=== PATIENT | female | born 1965 | race Caucasian/White ===

== ENCOUNTER → 2019-05-22 11:26 | Outpatient (BNVA) | payer MEDICARE, MEDICAID, SELFPAY | PROVIDERS: Family Provider Family Medicine; PCP Family Medicine; Visit Provider Specialist | DX: G47.419 Narcolepsy without cataplexy (principal) | CPT/HCPCS: G0463 ==

== ENCOUNTER → 2019-06-07 09:00 | Outpatient (BNVA) | payer MEDICARE, MEDICAID, SELFPAY | PROVIDERS: Family Provider Family Medicine; PCP Family Medicine; Visit Provider Nurse Practitioner | DX: F43.12 Post-traumatic stress disorder, chronic (principal); F25.0 Schizoaffective disorder, bipolar type | CPT/HCPCS: 99213 ==

== ENCOUNTER → 2019-06-13 17:30 | Outpatient (BNVA) | payer MEDICARE, MEDICAID, SELFPAY | PROVIDERS: Family Provider Family Medicine; PCP Family Medicine; Visit Provider Nurse Practitioner | DX: M54.9 Dorsalgia, unspecified (principal); R35.0 Frequency of micturition | CPT/HCPCS: 81003; 87086 ==

== ENCOUNTER 2019-06-14 17:56 | Emergency (ER) | payer MEDICARE, MEDICAID, SELFPAY ==
[2019-06-14 18:01] VITALS: BP 146/92; PULSE 93; RESP 18; TEMP 37.4; O2SAT 94; BMI 28.6
--- NOTE | 2019-06-14 18:06 | ED_ITS ---
Entered by Rosemary Chappell, acting as scribe for Henok Luis MD HPI - Fever General: Chief Complaint: Fever Stated Complaint: fever Time Seen by Provider: 06/14/19 18:10 Source: patient and family Mode of arrival: ambulatory Limitations: no limitations History of Present Illness: HPI Narrative: 53 yo female presents with fever. pt states this started 1 week ago. pt states she was recently dx with a UTI. pt states she started Microbid but she is still running fevers. pt has had congestion and cough. pt denies any other symptoms at this time. MD elicited complaint: fever and other (UTI) Onset (ago): week(s) (1 week ago) Exacerbating factors: nothing Relieving factors: nothing Associated symptoms: Reports chills, cough, nasal congestion and other (fever); Deny abdominal pain, chest pain, diarrhea, headache(s), nausea or vomiting Treatments prior to arrival fever: other (recently dx with UTI) Review of Systems Const: Reports: fever, chills and body aches Eyes: Denies: photophobia ENMT: Reports: nasal congestion Card: Denies: chest pain Resp: Reports: productive cough and chest congestion GI: Denies: abdominal pain, nausea, vomiting or diarrhea : Reports: urinary frequency Musc: Denies: neck pain or back pain Skin/Breast: Denies: rash Neuro: Denies: headache Psych: Denies: depression Maurisio/Lymph: Denies: easy bruising All/Imm: Denies: hives PFSH ED PFSH: Medical History (Updated 06/14/19 @ 20:16 by Henok Luis MD) Post-traumatic stress disorder, chronic Social History Smoking and tobacco status: never smoked Quit status (tobacco): has quit using tobacco Year quit tobacco: 1995 Alcohol intake: former History of recent travel: No Physical Exam Const: COMMON NORMALS: no apparent distress, oriented x3 and healthy appearing HENMT: COMMON NORMALS: normocephalic and head/scalp atraumatic HEAD & SCALP: normocephalic and atraumatic Eye: COMMON NORMALS: PERRL and EOMs intact bilaterally PUPIL: Yes PERRL Neck/C-Spine: COMMON NORMALS: full ROM and supple Chest: COMMONS NORMALS: inspection of chest normal and palpation of chest normal Resp: COMMON NORMALS: normal respiratory effort, no retractions, no use of accessory muscles and clear to auscultation bilaterally AUSCULTATION: clear to auscultation bilaterally Cardio: COMMON NORMALS: regular rate, regular rhythm and no murmurs RATE: regular rate RHYTHM: regular rhythm GI: COMMON NORMALS: normal to inspection, nondistended, normoactive bowel sounds, soft to palpation, non-tender and no masses PALPATION: Yes soft Extremity: COMMON NORMALS: normal to inspection and full ROM Neuro: COMMON NORMALS: oriented x3, moves all extremities and no focal motor deficits Psych: COMMON NORMALS: mental status grossly normal, thought process normal and cooperative THOUGHT PROCESS: normal thought process Skin: COMMON NORMALS: no rashes or lesions noted and no wounds GENERAL SKIN EXAM: no rashes or lesions noted Course Vital Signs: Vital signs: Vital Signs Temperature 99.3 F 06/14/19 18:01 Pulse Rate 93 06/14/19 18:01 Respiratory Rate 18 06/14/19 18:01 Blood Pressure 146/92 06/14/19 18:01 Pulse Oximetry 94 06/14/19 18:01 MDM - Fever MDM Narrative: Medical decision making narrative: Patient presents here with fevers along with congestion and cough. Patient does have influenza and likely causing this symptoms. X-ray shows no signs of pneumonia. Will start patient on Tamiflu. She is to continue her Macrobid for her UTI. She is to follow-up with her primary care doctor in 3 to 5 days return if worsening. Lab Data: Labs: Lab Results 06/14/19 Range/Units 19:21 Influenza Type A A g Positive H (Negative) POC Influenza B Ag Negative (Negative) Imaging Data^: CXR: Attestation: I personally reviewed and interpreted this imaging study as follows: My impression: no acute abnormality Discharge Plan Discharge Patient Disposition: Home, Self-Care Clinical Impression: Influenza Condition: Stable Prescriptions: New Tamiflu 75 mg capsule 75 mg PO BID 5 Days Qty: 10 RF: 0 No Action metformin 1,000 mg tablet 1,000 mg PO BID RF: 0 aspirin [Aspir-Nahomy] 325 mg tablet,delayed release (DR/EC) 325 mg PO DAILY RF: 0 propranolol 20 mg tablet 10 mg PO BID RF: 0 omeprazole 20 mg capsule,delayed release(DR/EC) 20 mg PO DAILY RF: 0 fenofibrate micronized 200 mg capsule 200 mg PO DAILY RF: 0 hydrocodone-acetaminophen 10-325 mg tablet 1 tab PO Q4H PRNRF: 0 ibandronate [Boniva] 150 mg tablet 150 mg PO .COMPLEX RF: 0 lidocaine [Lidoderm] 5 % adhesive patch,medicated 1 patch TOPICAL DAILY RF: 0 methylphenidate HCl [Ritalin LA] 40 mg capsule,ER biphasic 50-50 40 mg PO .COMPLEX 30 Days Qty: 60 RF: 0 escitalopram oxalate [Lexapro] 20 mg tablet 20 mg PO DAILY Qty: 30 RF: 2 clonazepam 0.5 mg tablet 0.5 mg PO DAILY PRN (Reason: anxiety) Qty: 30 RF: 2 nitrofurantoin monohyd/m-cryst [Macrobid] 100 mg capsule 100 mg PO BID 7 Days Qty: 14 RF: 0 Discharge Orders: Discharge Order (Routine); Ordered 06/14/19 Ordered By: Henok Luis Referrals: Dereck Hernandez [Primary Care Provider] - 4-7 days Discharge Diet: Advance as tolerated Discharge Activity: Resume usual activity Patient Instructions: Influenza (ED) Coding Level of Care Code ED Vault Worker for g Fwd Exam Comprehensive The documentation recorded by the Ta santacruz Bridget Annette, accurately reflects the service I personally performed and the decisions made by Janelle auguste Korby, MD Jun 14, 2019 17:56
[2019-06-14] MEDS: dexamethasone 10 mg/mL INJ IM (19:21)
[2019-06-14] MEDS: acetaminophen 500 mg Tablet 1000 MG PO (19:21)
--- NOTE | 2019-06-14 19:39 | XR_ITS ---
WS: [id number] XR chest 1V portable [id number] REASON FOR EXAM: cough FINDINGS: Hypoaerated lungs are seen bilaterally. The chest is similar to September 09, 2016. The lung duenas are free of pneumonia, no congestive heart failure. No pulmonary edema. No pleural ef fusion. There are scattered granulomas seen. The hilum and apices normal. XR/XR chest 1V portable [id number] IMPRESSION: Hypoaerated lungs with no acute findings.
[2019-06-14 20:12] LABS: Influenza A by IFA Positive (Negative); Influenza B by IFA Negative (Negative)
--- NOTE | 2019-06-14 21:18 | PC.NURSE ---
Patient dc'd home in stable condition via ambulation refusing wheelchair. Discharge papers given and explained to patient with all questions asked and answered.
[2019-06-14 21:21] VITALS: BP 136/78; PULSE 88; RESP 16; O2SAT 98
== END 2019-06-14 21:22 | disposition home or self-care (01) ==
PROVIDERS: Emergency Provider Emergency Medicine; Family Provider Family Medicine; PCP Family Medicine
DX: J10.1 Influenza due to other identified influenza virus with other respiratory manifestations (principal); N39.0 Urinary tract infection, site not specified; F43.12 Post-traumatic stress disorder, chronic; Z87.891 Personal history of nicotine dependence
CPT/HCPCS: 12345; 71045; 87804; 96372; 99281; 99283; J1100

== ENCOUNTER → 2019-08-14 09:53 | Outpatient (BNVA) | payer MEDICARE, MEDICAID, SELFPAY | PROVIDERS: Family Provider Family Medicine; PCP Family Medicine; Visit Provider Specialist | DX: G47.419 Narcolepsy without cataplexy (principal); G43.711 Chronic migraine without aura, intractable, with status migrainosus; Z87.891 Personal history of nicotine dependence | CPT/HCPCS: 99213 ==

== ENCOUNTER → 2019-08-30 07:34 | Outpatient (BNVA) | payer MEDICARE, MEDICAID, SELFPAY | PROVIDERS: Family Provider Family Medicine; PCP Family Medicine; Visit Provider Nurse Practitioner | DX: F43.12 Post-traumatic stress disorder, chronic (principal) | CPT/HCPCS: 99213 ==

== ENCOUNTER → 2019-11-19 09:55 | Outpatient (BNVA) | payer MEDICARE, MEDICAID, SELFPAY | PROVIDERS: Family Provider Family Medicine; PCP Family Medicine; Visit Provider Specialist | DX: G47.419 Narcolepsy without cataplexy (principal) | CPT/HCPCS: 99213 ==

== ENCOUNTER 2019-12-18 14:50 | Outpatient (CLI) | payer MEDICARE, MEDICAID, SELFPAY ==
--- NOTE | 2019-12-18 15:00 | XR_ITS ---
WS: [id number] DEXA (DUAL ENERGY X-RAY ABSORPTIOMETRY) Bone mineral density was performed using a [employer] machine. HISTORY: OSTEOPOROSIS COMPARISON: None available. Lumbar spine BMD (L1-L4): 1.112 g/cm2 T score: -0.6 Z score: -0.3 Total hip BMD: Left: 0.887 g/cm2. T score: -1.0 Z score: -0.7 Right: 0.889 g/cm2. T score: -0.9 Z score: -0.7 10 year probability of a major osteoporotic fracture is 9%. XR/XR DEXA axial skeleton* [id number] IMPRESSION: NORMAL BONE MINERAL DENSITY based upon the WHO classification for females.
== END 2019-12-18 14:51 | disposition home or self-care (01) ==
LOC: RADWPI 14:54
PROVIDERS: Family Provider Family Medicine; PCP Family Medicine; Visit Provider Family Medicine
DX: M81.0 Age-related osteoporosis without current pathological fracture (principal)
CPT/HCPCS: 77080

== ENCOUNTER → 2019-12-24 08:06 | Outpatient (BNVA) | payer MEDICARE, MEDICAID, SELFPAY | PROVIDERS: Family Provider Family Medicine; PCP Family Medicine; Visit Provider Nurse Practitioner | DX: F43.12 Post-traumatic stress disorder, chronic (principal) | CPT/HCPCS: 99213 ==

== ENCOUNTER → 2020-04-15 07:59 | Outpatient (BNVA) | payer MEDICARE, MEDICAID, SELFPAY | PROVIDERS: Family Provider Family Medicine; PCP Family Medicine; Visit Provider Nurse Practitioner | DX: F43.12 Post-traumatic stress disorder, chronic (principal) | CPT/HCPCS: 99213 ==

== ENCOUNTER → 2020-05-30 09:50 | Outpatient (BNVA) | payer MEDICARE, MEDICAID, SELFPAY | PROVIDERS: Family Provider Family Medicine; PCP Family Medicine; Visit Provider Specialist | DX: G47.419 Narcolepsy without cataplexy (principal) | CPT/HCPCS: 99213 ==

== ENCOUNTER → 2020-08-18 08:42 | Outpatient (BNVA) | payer MEDICARE, MEDICAID, SELFPAY | PROVIDERS: Family Provider Family Medicine; PCP Family Medicine; Visit Provider Specialist | DX: G47.419 Narcolepsy without cataplexy (principal); Z87.891 Personal history of nicotine dependence | CPT/HCPCS: 99213 ==

== ENCOUNTER → 2020-11-17 12:20 | Outpatient (BNVA) | payer MEDICARE, MEDICAID, SELFPAY | PROVIDERS: Family Provider Family Medicine; PCP Family Medicine; Visit Provider Specialist | DX: G47.419 Narcolepsy without cataplexy (principal); Z87.891 Personal history of nicotine dependence | CPT/HCPCS: 99213 ==

== ENCOUNTER 2020-11-28 22:26 | Emergency (ER) | payer MEDICARE, MEDICAID, SELFPAY ==
[2020-11-28 22:33] VITALS: BP 135/84; PULSE 97; RESP 18; TEMP 36; O2SAT 96; BMI 28.3
--- NOTE | 2020-11-29 00:20 | W.ED.BACK ---
HPI - Back Pain/Injury General: Chief Complaint: Back Pain/Injury Stated Complaint: lower back paing going down to the R leg Time Seen by Provider: 11/28/20 22:40 History of Present Illness: HPI Narrative: Patient complains about back pain with sciatica rating down her right leg is been gone for about 3 days. Patient's not aware of any injury does have a history of chronic back pain has had sciatica in the past. Patient denies any bowel or bladder problems. Says difference this time is a pain trend and further down her leg that before where usually just with antibiotics for now is gone below the knee on the right side MD elicited complaint: back pain Pertinent past history: prior back pain Onset (ago): day(s) Timing: constant and progressively worsening Severity: moderate Similar Symptoms Previously: Yes Quality: burning and aching Location: lumbar spine Radiation: right upper leg and right leg below the knee Exacerbating factors: movement Relieving factors: none Context: unknown Associated symptoms: Reports no associated symptoms; Deny abdominal pain, chills, fever(s), nausea or vomiting Treatments prior to arrival: cold therapy and NSAIDS Review of Systems Const: Denies: fever(s), chills or body aches Eyes: Denies: change in vision or blurry vision ENMT: Denies: throat pain or nasal congestion Card: Denies: chest pain or dyspnea on exertion Resp: Denies: dyspnea, productive cough or non-productive cough GI: Denies: abdominal pain, nausea or vomiting Musc: Reports: back pain and extremity pain Skin/Breast: Denies: rash Neuro: Denies: headache(s) Psych: Denies: anxiety or depression Maurisio/Lymph: Denies: easy bruising PFSH ED PFSH: Medical History Post-traumatic stress disorder, chronic Well woman exam with routine gynecological exam Family History Mother Diabetes Hyperlipidemia Hypertension Heart disease Grandmother Diabetes maternal Family/Other Breast cancer maternal aunt, age onset 30's maternal cousin, age onset 30's Ovarian cancer maternal aunt x2 age onset 60's, 70's Denies family history of Colon cancer Clotting disorder Anesthesia complication Bleeding disorder Uterine cancer Thyroid condition Stroke Social History Smoking and tobacco status: former smoker Quit status (tobacco): has quit using tobacco Year quit tobacco: 1995 Alcohol intake: former Former alcohol use details: years ago History of recent travel: No Physical Exam Const: COMMON NORMALS: no acute distress, average body habitus and patient oriented x3 HENMT: COMMON NORMALS: normocephalic HEAD & SCALP: normal to inspection and normocephalic FACE & SINUS: normal facial exam Eye: COMMON NORMALS: conjunctivae normal GENERAL EYE: appearance normal, both eyes and all related structures CONJUNCTIVA: Yes conjunctivae normal Neck/C-Spine: COMMON NORMALS: no JVD Chest: COMMONS NORMALS: normal inspection of the chest Resp: COMMON NORMALS: normal respiratory effort and clear to auscultation bilaterally AUSCULTATION: clear to auscultation bilaterally Cardio: COMMON NORMALS: no JVD, regular rate and regular rhythm RATE: regular rate RHYTHM: regular rhythm GI: COMMON NORMALS: Normal to inspection, nondistended, normoactive bowel sounds present Back/Pelvis: LUMBAR SPINE/LOWER BACK: Yes straight leg raise positive right PELVIS: Yes sciatic notch tenderness Extremity: COMMON NORMALS: normal to inspection and full ROM Neuro: COMMON NORMALS: patient oriented x3 Course Vital Signs: Vital signs: Vital Signs Temperature 96.8 F L 11/28/20 22:33 Pulse Rate 97 11/28/20 22:33 Respiratory Rate 18 11/28/20 22:33 Blood Pressure 135/84 11/28/20 22:33 Pulse Oximetry 96 11/28/20 22:33 Discharge Plan Discharge Patient Disposition: Home Clinical Impression: Sciatic neuropathy Qualifiers: Laterality: right Qualified Code(s): G57.01 - Lesion of sciatic nerve, right lower limb Condition: Stable Prescriptions: New prednisone 20 mg tablet 20 mg PO DAILY Qty: 7 RF: 0 No Action methylphenidate HCl [Ritalin LA] 40 mg capsule,ER biphasic 50-50 40 mg PO BID 30 Days Qty: 60 RF: 0 methylphenidate HCl 40 mg capsule,ER biphasic 50-50 40 mg PO BID 30 Days Qty: 60 RF: 0 methylphenidate HCl 40 mg capsule,ER biphasic 50-50 40 mg PO DAILY 30 Days Qty: 60 RF: 0 metformin 1,000 mg tablet 1,000 mg PO BID RF: 0 aspirin [Aspir-Nahomy] 325 mg tablet,delayed release (DR/EC) 325 mg PO DAILY RF: 0 omeprazole 20 mg capsule,delayed release(DR/EC) 20 mg PO DAILY RF: 0 fenofibrate micronized 200 mg capsule 200 mg PO DAILY RF: 0 hydrocodone-acetaminophen 10-325 mg tablet 1 tab PO Q4H PRNRF: 0 lidocaine [Lidoderm] 5 % adhesive patch,medicated 1 patch TOPICAL DAILY RF: 0 ibandronate [Boniva] 150 mg tablet 150 mg PO .monthly RF: 0 clonazepam 0.5 mg tablet 0.5 mg PO DAILY PRN (Reason: anxiety) Qty: 30 RF: 2 escitalopram oxalate [Lexapro] 20 mg tablet 20 mg PO DAILY Qty: 30 RF: 2 Discharge Orders: Discharge ED (Routine); Ordered 11/29/20 Ordered By: Nic Gonzalez Referrals: Dereck Hernandez [Primary Care Provider] - Discharge Diet: Usual diet Discharge Activity: Increase activity as tolerated Patient Instructions: Sciatica (ED) Activity Restrictions/Additional Instructions: Follow-up with medical provider as directed. Take medications as prescribed. Return to the ER or your medical provider if condition worsens. Please read and understand discharge instructions. If any questions ask please. Coding Level of Care Code ED Internet Network Specialist for Jhoan Aviles
[2020-11-29] MEDS: orphenadrine 30 mg/mL Inj 2 mL 60 MG IM (00:27)
[2020-11-29] MEDS: methylPREDNISolone (DEPO) 80 MG/ML INJ 1 mL IM (00:28)
[2020-11-29 00:33] VITALS: BP 145/76; PULSE 63; RESP 18; O2SAT 97
[2020-11-29 00:35] VITALS: BP 145/76; PULSE 66; O2SAT 96
== END 2020-11-29 00:40 | disposition home or self-care (01) ==
PROVIDERS: Emergency Provider Nurse Practitioner Family; PCP Family Medicine
DX: G57.01 Lesion of sciatic nerve, right lower limb (principal); Z79.84 Long term (current) use of oral hypoglycemic drugs; Z79.82 Long term (current) use of aspirin; Z87.891 Personal history of nicotine dependence
CPT/HCPCS: 96372; 99283; J1040; J2360

== ENCOUNTER → 2020-12-09 07:10 | Outpatient (BNVA) | payer MEDICARE, MEDICAID, SELFPAY | PROVIDERS: PCP Family Medicine; Visit Provider Nurse Practitioner | DX: F43.12 Post-traumatic stress disorder, chronic (principal) | CPT/HCPCS: 99214 ==

== ENCOUNTER 2020-12-29 09:46 | Outpatient (CLI) | payer MEDICARE, MEDICAID, SELFPAY ==
--- NOTE | 2020-12-29 10:15 | MR_ITS ---
WS: [id number] MRI LUMBAR SPINE NONCONTRAST HISTORY: Severe RIGHT sciatica. Low back pain for 3 weeks. COMPARISON: 05/19/2011 TECHNIQUE: Sagittal and axial multisequence imaging is submitted. Very mild increase in lumbar lordosis. 2 mm anterolisthesis of L4 is new. Mild disc desiccation throu ghout. No fractures or marrow edema. Conus terminates normally at L1-2 disc level. L1-L2: Normal. L2-L3: Mild annular disc bulging with a LEFT foraminal disc protrusion contacting the exiting L2 nerv e root. There is also the fissure associated with disc protrusion. Disc protrusion has increased in s ize since the prior study. Small amount of fluid in the facet joints bilaterally. L3-L4: Mild annular disc bulging and osteophytic ridging. Increased soft tissue in the RIGHT subartic ular recess and foramen. There is a disc protrusion contacting the RIGHT lateral thecal sac with mini mal displacement of the traversing RIGHT L4 nerve root. There is complete effacement of fat in the RI GHT foramen and contact on the exiting RIGHT L3 nerve root. There is increased soft tissue within the foramen. There may be of disc fragment present also. These findings are new since the prior study. M ild bilateral facet joint arthritis. L4-L5: Diffuse annular disc bulging with a RIGHT subarticular recess and foraminal disc protrusion co ntacting the ventral thecal sac. Moderate ligamentum flavum disease and facet arthritis. Increase flu id in the facet joints with facet joint hypertrophy. Mild widening of the RIGHT facet joint and a sma ll 6 mm facet joint cyst on the RIGHT. Mild central stenosis. Moderate RIGHT subarticular recess and foraminal stenosis. L5-S1: Mild annular disc bulging without stenosis. Paravertebral soft tissues are negative for acute process. MR/MR lumbar spine wo con* [id number] IMPRESSION: 1. New disc protrusion extending into the RIGHT subarticular recess and forame n at L3-4. Contact on the L3 and L4 nerve roots. Additional increased soft tiss ue within the RIGHT L3-4 foramen. There could potentially be a separate fragmen t within the foramen. 2. Mild central stenosis with moderate RIGHT subarticular and foraminal stenos is at L4-5. There is a disc protrusion with annular fissure extending into the RIGHT subarticular recess. 3. Progression of facet joint arthritis with fluid and synovitis at L4-5 with a RIGHT facet joint cyst. 4. Small LEFT foraminal disc protrusion at L2-3 contacting the exiting L2 nerv e root. Mild progression since the prior study.
== END 2020-12-29 09:47 | disposition home or self-care (01) ==
PROVIDERS: PCP Family Medicine; Visit Provider Family Medicine
DX: M54.41 Lumbago with sciatica, right side (principal); M51.26 Other intervertebral disc displacement, lumbar region; M48.061 Spinal stenosis, lumbar region without neurogenic claudication; M47.816 Spondylosis without myelopathy or radiculopathy, lumbar region
CPT/HCPCS: 72148

== ENCOUNTER → 2021-01-27 15:37 | Outpatient (BNVA) | payer MEDICARE, MEDICAID, SELFPAY | PROVIDERS: PCP Family Medicine; Visit Provider Orthopaedic Surgery | DX: M54.16 Radiculopathy, lumbar region (principal) | CPT/HCPCS: 72110 ==

== ENCOUNTER → 2021-02-11 12:35 | Outpatient (BNVA) | payer MEDICARE, MEDICAID, SELFPAY | PROVIDERS: PCP Family Medicine; Visit Provider Specialist | DX: G47.419 Narcolepsy without cataplexy (principal); R01.1 Cardiac murmur, unspecified; Z87.891 Personal history of nicotine dependence | CPT/HCPCS: 99213 ==

== ENCOUNTER → 2021-03-03 18:04 | Outpatient (BNVA) | payer MEDICARE, MEDICAID, SELFPAY | PROVIDERS: PCP Family Medicine; Visit Provider Nurse Practitioner | DX: J02.9 Acute pharyngitis, unspecified (principal); B34.9 Viral infection, unspecified | CPT/HCPCS: 87400; 87880 ==

== ENCOUNTER → 2021-05-04 07:18 | Outpatient (BNVA) | payer MEDICARE, MEDICAID, SELFPAY | PROVIDERS: PCP Family Medicine; Visit Provider Nurse Practitioner | DX: F43.12 Post-traumatic stress disorder, chronic (principal) | CPT/HCPCS: 99214 ==

== ENCOUNTER → 2021-05-13 09:41 | Outpatient (BNVA) | payer MEDICARE, MEDICAID, SELFPAY | PROVIDERS: PCP Family Medicine; Visit Provider Specialist | DX: G47.419 Narcolepsy without cataplexy (principal); Z87.891 Personal history of nicotine dependence | CPT/HCPCS: 99213 ==

== ENCOUNTER → 2021-08-10 09:17 | Outpatient (BNVA) | payer MEDICARE, MEDICAID, SELFPAY | PROVIDERS: PCP Family Medicine; Visit Provider Specialist | DX: G47.419 Narcolepsy without cataplexy (principal); R01.1 Cardiac murmur, unspecified; Z87.891 Personal history of nicotine dependence | CPT/HCPCS: 99213; 99214 ==

== ENCOUNTER → 2021-11-16 09:22 | Outpatient (BNVA) | payer MEDICARE, MEDICAID, SELFPAY | PROVIDERS: PCP Family Medicine; Visit Provider Specialist | DX: G47.419 Narcolepsy without cataplexy (principal); R01.1 Cardiac murmur, unspecified; Z79.899 Other long term (current) drug therapy | CPT/HCPCS: 99213; 99214 ==

== ENCOUNTER 2021-11-23 11:04 | Outpatient (CLI) | payer MEDICARE, MEDICAID, SELFPAY ==
--- NOTE | 2021-11-23 11:15 | USCV_ITS ---
Mily Sinclair Age: 56 Gender: F : 1965 Exam Date: 11/23/2021 11:44 Ordering Phys: Minerva Bush MD Technologist: Clare Bar [place] [facility] [place]: Murmur BP: 138 / 80 HR: 64 Rhythm: Sinus Technical Quality: Adequate MEASUREMENTS (Male / Female) Normal Values 2D ECHO LV Diastolic Diameter PLAX 2.7 cm 4.2 - 5.9 / 3.9 - 5.3 cm LV Systolic Diameter PLAX 2.2 cm IVS Diastolic Thickness 1.7 cm 0.6 - 1.0 / 0.6 - 0.9 cm IVS Systolic Thickness 1.7 cm LVPW Diastolic Thickness 1.3 cm 0.6 - 1.0 / 0.6 - 0.9 cm LVPW Systolic Thickness 1.7 cm LVOT Diameter 2.0 cm LV Ejection Fraction 2D Teich 41.4 % LV Ejection Fraction MOD 2C 83.5 % LV Ejection Fraction 2C AL 83.8 % LA Diameter 2.5 cm LA Width 3.3 cm LA Height 4.5 cm RA Width 2.9 cm RA Height 4.0 cm Aorta at Sinotubular Diameter 3.0 cm IVC Diameter 1.8 cm DOPPLER AV Peak Velocity 171.0 cm/s LVOT Peak Velocity 150.0 cm/s AV Area Cont Eq vti 2.8 cm squared AV Area Cont Eq pk 2.9 cm squared MV Peak Velocity 136.0 cm/s MV Area PHT 3.4 cm squared Mitral E to A Ratio 0.7 MV E' Velocity 45.0 cm/s Mitral E to MV E' Ratio 15.6 Mitral E to LV E' Lateral Ratio 14.5 Mitral E to LV E' Septal Ratio 17.2 TR Peak Velocity 76.0 cm/s TR Peak Gradient 2.3 mmHg Right Atrial Pressure 3.0 mmHg Pulmonary Artery Systolic Pressu 5.3 mmHg PV Peak Velocity 92.0 cm/s RV Acceleration Time 0.1 s RV Ejection Time 0.3 s RV AcT/ET 0.3 FINDINGS Left Ventricle Normal left ventricular size, systolic function with no regional wall motion abnormalities. Left ventricular ejection fraction is estimated at 70 %. Grade I diastolic dysfunction (abnormal relaxation filling pattern), normal to mildly elevated filling pressures. Right Ventricle Normal right ventricular size and systolic function. RVSP could not be calculated due to incomplete tricuspid regurgitation velocity profile. Right Atrium Normal right atrial size. Left Atrium Mildly increased left atrial size. Mitral Valve Thickened mitral valve. No mitral valve stenosis. Mild mitral valve regurgitation. Aortic Valve Structurally normal trileaflet aortic valve. No aortic valve stenosis. No aortic valve regurgitation. Tricuspid Valve Structurally normal tricuspid valve. No tricuspid valve stenosis. Trace tricuspid valve regurgitation. Pulmonic Valve Pulmonic valve not well visualized. No pulmonary valve stenosis. No pulmonary valve regurgitation. Pericardium No pericardial effusion. Aorta Normal size aortic root and proximal ascending aorta. IVC Normal IVC dimension with >50% respiratory change of the inferior vena cava. CONCLUSIONS 1. Normal left ventricular size, systolic function with no regional wall motion abnormalities. Left ventricular ejection fraction is estimated at 70 %. Grade I diastolic dysfunction (abnormal relaxation filling pattern), normal to mildly elevated filling pressures. 2. Normal right ventricular size and systolic function. 3. Mild mitral valve regurgitation. 4. No prior similar studies to compare. Torie Mendez MD (Electronically Signed) Final Date: 26 November 2021 16:00 S
== END 2021-11-23 11:05 | disposition home or self-care (01) ==
LOC: RAD 11:05
PROVIDERS: PCP Family Medicine; Visit Provider Specialist
DX: R01.1 Cardiac murmur, unspecified (principal); I34.0 Nonrheumatic mitral (valve) insufficiency
CPT/HCPCS: 93306

== ENCOUNTER 2022-01-19 07:46 | Outpatient (CLI) | payer MEDICARE, MEDICAID, SELFPAY ==
--- NOTE | 2022-01-19 07:52 | MR_ITS ---
WS: [id number] MRI HEAD WITH CONTRAST WITH ATTENTION TO THE INTERNAL AUDITORY CANALS TECHNIQUE: Sagittal T1, T2 axial, T2 axial flair, axial susceptibility weighted imaging, axial diffus ion weighted images, and coronal T2 images were obtained. Pre and post T1 axial and post T1 coronal i mages. ADC and FSPGR images. Post gadolinium images with attention to the internal auditory canals. A xial fiesta imaging. CLINICAL INFORMATION: SENSORINEURAL HEARING LOSS, BILATERAL COMPARISON: CT 2006 FINDINGS: No evidence of restricted diffusion to suggest acute ischemia. Ventricular system and basal cisterns are patent. No suspicious intracranial signal abnormalities. Normal zendejas-white differentiation. No ev idence of mass or mass effect. Normal posterior fossa. Normal vascular flow voids at the skull base. No extra-axial fluid collections. No evidence of mass or mass effect. Paranasal sinuses are well aera rafael. Mastoid air cells are well aerated. Normal posterior nasopharynx. Normal parapharyngeal fat. No hemosiderin on susceptibly weighted images. Proximal 7th and 8th cranial nerves are normal. Normal tr igeminal nerve root entry zones. No evidence of enhancing IAC or CP angle mass. Normal optic chiasm and pituitary infundibulum. Normal cavernous sinuses and Meckel's cave. No abnorm al intracranial enhancement. Normal visualized dural venous sinuses. MR/MR iac's wo/w con* [id number] IMPRESSION: 1. No evidence restricted diffusion to suggest acute ischemia. 2. No suspicious intracranial signal abnormalities. Normal zendejas-white differen tiation. 3. Proximal 7th and 8th cranial nerves are normal in appearance. No evidence o f enhancing IAC or CP angle mass. Normal trigeminal nerve root entry zones. 4. No abnormal intracranial enhancement. 5. No hemosiderin on susceptibly weighted images. 6. Sinuses and mastoid air cells are well aerated.
[2022-01-19] MEDS: gadobenate dimeglumine 20 mL vial IV (08:44)
== END 2022-01-19 07:47 | disposition home or self-care (01) ==
LOC: RAD 07:46
PROVIDERS: PCP Family Medicine; Visit Provider Specialist
DX: H90.3 Sensorineural hearing loss, bilateral (principal)
CPT/HCPCS: 70553

== ENCOUNTER 2022-02-12 08:51 | Outpatient (CLI) | payer MEDICARE, MEDICAID, SELFPAY ==
--- NOTE | 2022-02-12 09:01 | MR_ITS ---
WS: [id number] MRA HEAD TECHNIQUE: Axial 3-D TOF images obtained with axial images and axial, sagittal, and coronal 2-D refor matted images. CLINICAL INFORMATION: SENSORINEURAL HEARING LOSS,BILATERAL/TINNITUS,LEFT EAR COMPARISON: MRI January 19, 2022 FINDINGS: Dominant distal LEFT vertebral artery. Smaller but patent distal RIGHT vertebral artery. Basilar froilan ry is patent. Normal vascularity to the MORTGAGE CLOSING CLERK territory bilaterally. Both ICAs are patent to the skull base. Normal vascularity to the BALJIT territory. Normal vascularity t o the MCA territories bilaterally. No evidence of proximal flow limiting stenosis or aneurysm. No evidence of aberrant LEFT ICA. MR/MR angio head wo con [id number] IMPRESSION: Normal intracranial MRA.
== END 2022-02-12 08:52 | disposition home or self-care (01) ==
PROVIDERS: PCP Family Medicine; Visit Provider Specialist
DX: H90.3 Sensorineural hearing loss, bilateral (principal); H93.12 Tinnitus, left ear
CPT/HCPCS: 70544

== ENCOUNTER 2022-02-16 06:42 | Outpatient (CLI) | payer MEDICARE, MEDICAID, SELFPAY ==
--- NOTE | 2022-02-16 06:47 | CT_ITS ---
WS: [id number] CT TEMPORAL BONES TECHNIQUE: Noncontrast CT of the temporal bones with coronal and sagittal reformatted images. CLINICAL INFORMATION: SENSORINEURAL HEARING LOSS, BILAT, TINNITUS LEFT EAR COMPARISON: None. DLP: 296.[address] scans at [facility] use at least one of these dose optimization techniques: automated e xposure control; mA and/or kV adjustment per patient size (includes targeted exams where dose is matc hed to clinical indication); or iterative reconstruction. FINDINGS: RIGHT: Mastoid air cells are well aerated. Normal external auditory canal. Ossicles are normal in appearance . Middle ear is well aerated. Normal tegmen tympani. Semicircular canals and cochlea are normal in ap pearance. Prussak's space is normal. Normal inner ear structures. Normal vestibular aqueduct. Facial nerve recess is normal. LEFT: Mastoid air cells are well aerated. Normal external auditory canal. Ossicles are normal in appearance . Middle ear is well aerated. Thinning of the tegmen tympani. Semicircular canals and cochlea are nor mal in appearance. Prussak's space is normal. Normal inner ear structures. Normal vestibular aqueduct . Facial nerve recess is normal. CT/CT temporal bone wo con* [id number] IMPRESSION: 1. Mastoid air cells are well aerated bilaterally. Paranasal sinuses are well aerated. 2. Normal inner ear structures and ossicles bilaterally. 3. Mild thinning of the LEFT tegmen tympani. 4. Middle ears are well aerated bilaterally.
== END 2022-02-16 06:43 | disposition home or self-care (01) ==
LOC: RAD 06:42
PROVIDERS: PCP Family Medicine; Visit Provider Specialist
DX: H90.3 Sensorineural hearing loss, bilateral (principal)
CPT/HCPCS: 70480

== ENCOUNTER → 2022-02-23 09:32 | Outpatient (BNVA) | payer MEDICARE, MEDICAID, SELFPAY | PROVIDERS: PCP Family Medicine; Visit Provider Specialist | DX: G47.419 Narcolepsy without cataplexy (principal) | CPT/HCPCS: 99213 ==

== ENCOUNTER 2022-04-08 18:33 | Emergency (ER) | payer MEDICARE, MEDICAID, SELFPAY ==
[2022-04-08 19:11] VITALS: BP 148/81; PULSE 83; RESP 16; TEMP 36.7; O2SAT 97; BMI 26.7
--- NOTE | 2022-04-08 20:12 | MRR_ITS ---
PROCEDURE INFORMATION: Exam: MR Lumbar Spine Without Contrast Exam date and time: 04/08/2022 9:42 PM Age: 56 years old Clinical indication: Low back pain; Additional info: Right leg weakness, concern for spinal cord compression TECHNIQUE: Imaging protocol: Magnetic resonance imaging of the lumbar spine without contrast. COMPARISON: MR lumbar spine wo con* [id number] 12/29/2020 10:04 AM FINDINGS: Bones/joints: Unremarkable. No fracture. Normal alignment. The bone marrow signal is within normal limits. A few small lumbar body hemangiomas are visualized. Spinal cord: Visualized cord, conus medullaris and cauda equina are unremarkable without compression. L1-L2: No significant disc disease. No significant spinal canal stenosis. No neural foraminal stenosis. L2-L3: No significant disc disease. No significant spinal canal stenosis. No neural foraminal stenosis. L3-L4: At L3-L4, a moderate broad-based disc bulge causes moderate bilateral neural foraminal stenosis. The central canal measures about 12.5 mm. L4-L5: At L4-L5, a moderate broad-based disc bulge causes moderate bilateral neural foraminal stenosis. Contributory facet and ligamentum flavum hypertrophy. At this level the central canal AP dimension measures about 10 mm. L5-S1: At L5-S1 the central canal measures about 12 mm. For counting purposes, L5 is partially sacralized. Soft tissues: Unremarkable. Kidneys and ureters: Tiny left renal cyst. MR/MR lumbar spine wo con* [id number] IMPRESSION: 1. No acute fracture, subluxation, or aggressive bone lesion visualized. 2. Yorg-jl-umigdwia lower lumbar spondylosis as described with mild spinal stenosis.
--- NOTE | 2022-04-08 20:15 | ED_ITS ---
HPI - Extremity Problem General: Chief complaint: Extremity Problem,Nontraumatic Stated complaint: right hip pain and cold right foot Time Seen by Provider: 04/08/22 19:48 History of Present Illness: Patient comes in with pain and cold in her right leg as well as the inability to dorsiflex her right foot. States is been going on for couple weeks. States she saw her doctor who scheduled her for an MRI, but it has gotten worse and now she can no longer lift that foot. Associated symptoms: Deny chest pain, fever(s) or rash Review of Systems Const: Denies: fever(s) or body aches Eyes: Denies: change in vision or blurry vision ENMT: Denies: throat pain or odynophagia Card: Denies: chest pain or palpitations Resp: Denies: dyspnea or productive cough GI: Denies: abdominal pain, nausea or vomiting : Denies: flank pain or dysuria Musc: Denies: neck pain or back pain Skin/Breast: Denies: rash or pruritus Neuro: Reports: numbness in extremities; Denies: headache(s) Psych: Denies: anxiety or change in appetite Endo: Denies: polyuria or excessive sweating PFSH ED PFSH: Medical History Post-traumatic stress disorder, chronic Well woman exam with routine gynecological exam Family History Mother Diabetes Hyperlipidemia Hypertension Heart disease Grandmother Diabetes maternal Family/Other Breast cancer maternal aunt, age onset 30's maternal cousin, age onset 30's Ovarian cancer maternal aunt x2 age onset 60's, 70's Denies family history of Colon cancer Clotting disorder Anesthesia complication Bleeding disorder Uterine cancer Thyroid condition Stroke Social History Smoking and tobacco status: former smoker Quit status (tobacco): has quit using tobacco Year quit tobacco: 1995 Alcohol intake: former Former alcohol use details: years ago History of recent travel: No Physical Exam Const: COMMON NORMALS: no acute distress, patient oriented x3, healthy appearing and alert HENMT: COMMON NORMALS: normocephalic and atraumatic HEAD & SCALP: normocephalic and atraumatic Eye: COMMON NORMALS: Equal, round and reactive pupils present and EOMs intact bilaterally PUPIL: Yes Equal, round and reactive pupils present Neck/C-Spine: COMMON NORMALS: full ROM and supple Resp: COMMON NORMALS: normal respiratory effort, No retractions and No use of accessory muscles Cardio: COMMON NORMALS: regular rate and regular rhythm RATE: regular rate RHYTHM: regular rhythm GI: COMMON NORMALS: Normal to inspection, nondistended, normoactive bowel sounds present, Soft to palpation and non-tender PALPATION: Yes Soft to palpation Back/Pelvis: COMMON NORMALS: thoracic and lumbar spine normal to inspection and no thoracic nor lumbar tenderness Extremity: COMMON NORMALS: normal to inspection; negative for full ROM Neuro: COMMON NORMALS: patient oriented x3 SENSORIUM/ORIENTATION: Yes alert OTHER: right leg is slightly cooler to touch than the left leg, however she has easily palpable pulses. She cannot dorsiflex her right foot but can plantarflex it. Negative straight leg raise test on the right. Psych: COMMON NORMALS: mental status grossly normal and cooperative Skin: COMMON NORMALS: no rashes or lesions noted and no wounds GENERAL SKIN EXAM: no rashes or lesions noted Course Vital Signs: Vital signs: Vital Signs Temperature 98.1 F 04/08/22 19:11 Pulse Rate 84 04/08/22 20:35 Respiratory Rate 16 04/08/22 20:35 Blood Pressure 115/67 04/08/22 20:35 Pulse Oximetry 96 04/08/22 20:35 Oxygen Delivery Me thod 04/08/22 20:35 MDM - Extremity (Nontraumatic) Medical Decision Making Patient comes in with pain and cold in her right leg as well as the inability to dorsiflex her right foot. States is been going on for couple weeks. [facility] she saw her doctor who scheduled her for an MRI, but it has gotten worse and now she can no longer lift that foot. On physical exam her right leg is slightly cooler to touch than the left leg, however she has easily palpable pulses. She cannot dorsiflex her right foot but can plantarflex it. Negative straight leg raise test on the right. Patient denies any urinary retention or perineal numbness. Will check MRI, labs, and reassess. On reassessment I talked to the patient about the test results. Will refer her to orthopedic spine and discharged with precautions to return for worsening or changing symptoms. Lab Data 04/08/22 20:33 04/08/22 20:33 Radiology Impressions Lumbar Spine MRI 04/08/22 20:12 IMPRESSION: 1. No acute fracture, subluxation, or aggressive bone lesion visualized. 2. [id number] lower lumbar spondylosis as described with mild spinal stenosis. Laboratory Results WBC 7.0 10^3/uL (4.0-10.0) 04/08/22 20: RBC 4.75 10^6/uL (4.1-5.3) 04/08/22 20: Hgb 13.6 g/dL (11.5-15.3) 04/08/22 20: Hct 42.0 % (37.0-47.0) 04/08/22 20: MCV 88.4 fl (81-99) 04/08/22 20: MCH 28.6 pg (28.0-34.0) 04/08/22 20: MCHC 32.4 g/dL (30.0-36.0) 04/08/22 20: RDW 13.0 % (12.1-15.1) 04/08/22 20: Plt Count 398 10^3/cmm (130-400) 04/08/22 20: MPV 9.6 fL (7.4-10.4) 04/08/22 20: Neut % (Auto) 58.6 % 04/08/22 20: Lymph % (Auto) 32.1 % 04/08/22 20: [place] % (Auto) 6.8 % 04/08/22 20: Eos % (Auto) 1.3 % 04/08/22 20: Baso % (Auto) 0.6 % 04/08/22 20: Neut # (Auto) 4.13 10^3/uL (1.8-7.7) 04/08/22 20: Lymph # (Auto) 2.3 10^3/uL (0.8-4.8) 04/08/22 20: [place] # (Auto) 0.5 10^3/uL (0.2-0.9) 04/08/22 20: Eos # (Auto) 0.1 10^3/uL (0.0-0.8) 04/08/22 20:33 Baso # (Auto) 0.0 10^3/uL (0.0-0.1) 04/08/22 20: Nucleated RBC % (auto) 0 % 04/08/22 20: Nucleated RBCs # 0.0 /100WBC 04/08/22 20:33 ESR 3 mm/hr (0-15) 04/08/22 20: Sodium 138 mmol/L (136-145) 04/08/22 20: Potassium 4.0 mmol/L (3.5-5.1) 04/08/22 20: Chloride 103 mmol/L (98-107) 04/08/22 20: Carbon Dioxide 23 mmol/L (22-29) 04/08/22: Anion Gap 16.0 (5-19) 04/08/22 20: BUN 26 mg/dL (6-20) H 04/08/22 20: Creatinine 0.5 mg/dL (0.5-0.9) 04/08/22 20: GFR Calculation 128.6 mL/min (90-130) 04/08/22 20: Glucose 198 mg/dL (65-115) H 04/08/22 20: Calculated Osmolality 296 mOsm/kg (285-295) H 04/08/22: Calcium 9.0 mg/dL (8.5-10.5) 04/08/22 20: Total Bilirubin 0.2 mg/dL (0.15-1.2) 04/08/22: AST 22 U/L (0-32) 04/08/22 20: ALT 24 U/L (0-33) 04/08/22 20:33 Alkaline Phosphatase 74 U/L (35-105) 04/08/22 20: C-Reactive Protein 3.0 mg/L (0.0-4.9) 04/08/22 20: Total Protein 6.9 g/dL (6.6-8.7) 04/08/22 20: Albumin 4.4 g/dL (3.5-5.2) 04/08/22 20: Globulin 2.5 g/dL (1.3-4.6) 04/08/22 20:33 Discharge Plan Discharge Patient Disposition: Home Clinical Impression: Lumbar disc herniation with radiculopathy Condition: Stable Prescriptions: No Action clonazepam 0.5 mg tablet 0.5 mg PO DAILY PRN (Reason: anxiety) Qty: 30 2RF escitalopram oxalate [Lexapro] 20 mg tablet 20 mg PO DAILY Qty: 30 2RF metformin 1,000 mg tablet 1,000 mg PO BID aspirin [Aspir-Nahomy] 325 mg tablet,delayed release (DR/EC) 325 mg PO DAILY omeprazole 20 mg capsule,delayed release(DR/EC) 20 mg PO DAILY fenofibrate micronized 200 mg capsule 200 mg PO DAILY hydrocodone-acetaminophen 10-325 mg tablet 1 tab PO Q4H PRN lidocaine [Lidoderm] 5 % adhesive patch,medicated 1 patch TOPICAL DAILY ibandronate [Boniva] 150 mg tablet 150 mg PO .monthly valacyclovir 1 gram tablet 1,000 mg PO TID 7 Days Qty: 21 0RF methylphenidate HCl 40 mg capsule,ER biphasic 50-50 40 mg PO BID 30 Days Qty: 60 0RF Rx Instructions: DO NOT FILL UNTIL 03/24/2022 methylphenidate HCl [Ritalin LA] 40 mg capsule,ER biphasic 50-50 40 mg PO BID 30 Days Qty: 60 0RF Rx Instructions: Do not fill until 04/22/2022 methylphenidate HCl 40 mg capsule,ER biphasic 50-50 40 mg PO DAILY 30 Days Qty: 60 0RF Discharge Orders: Discharge ED (Routine); Ordered 04/08/22 Ordered By: Clinton Oh Referrals: Yaya Fung DO [Physician] - Dereck Hernandez [Primary Care Provider] - Patient Instructions: Lumbar Disc Herniation (ED), Lumbar Radiculopathy (ED) Coding Level of Care Code ED Cell Tester for Chg Fwd Exam Comprehensive
[2022-04-08 20:35] VITALS: BP 115/67; PULSE 84; RESP 16; O2SAT 96
[2022-04-08 20:47] LABS: Basophils % 0.6 %; Eosinophils # 0.1 10^3/uL (0.0-0.8); Eosinophils % 1.3 %; Hemoglobin 13.6 g/dL (11.5-15.3); Lymphocytes # 2.3 10^3/uL (0.8-4.8); Lymphocytes % 32.1 %; Mean Corpuscular HGB Conc 32.4 g/dL (30.0-36.0); Mean Corpuscular Hemoglobin 28.6 pg (28.0-34.0); Mean Corpuscular Volume 88.4 fl (81-99); Mean Platelet Volume 9.6 fL (7.4-10.4); Monocytes # 0.5 10^3/uL (0.2-0.9); Monocytes % 6.8 %; Neutrophils # 4.13 10^3/uL (1.8-7.7); Neutrophils % 58.6 %; Nucleated Red Blood Cells % 0 %; Platelet Count 398 10^3/cmm (130-400); Red Blood Count 4.75 10^6/uL (4.1-5.3)
[2022-04-08 21:05] LABS: Alanine Aminotransferase 24 U/L (0-33); Albumin Level 4.4 g/dL (3.5-5.2); Alkaline Phosphatase 74 U/L (35-105); Aspartate Amino Transferase 22 U/L (0-32); Blood Urea Nitrogen 26 mg/dL (6-20); Carbon Dioxide 23 mmol/L (22-29); Chloride 103 mmol/L (98-107); Globulin 2.5 g/dL (1.3-4.6); Glomerular Filtration Rate 128.6 mL/min (90-130); Glucose 198 mg/dL (65-115); Osmolality Calculated 296 mOsm/kg (285-295); Sodium 138 mmol/L (136-145); Total Bilirubin 0.2 mg/dL (0.15-1.2); Total Protein 6.9 g/dL (6.6-8.7)
[2022-04-08 21:09] LABS: Erythrocyte Sedimentation Rate 3 mm/hr (0-15)
[2022-04-08 22:53] VITALS: BP 132/81; PULSE 74; RESP 16
--- NOTE | 2022-04-09 09:21 | DCPLANNER ---
Addendum entered by Dilia Judge 04/14/22 14:51: manager pest received the following message from the ortho clinic regarding follow up appointment: spoke to patient - she is going to call us back when she gets her school schedule figured out. Can schedule with Dr. Fung or Woodrow Sanders which ever patient preferes Original Note: manager pest had message to schedule a follow up appointment for patient with ortho. manager pest sent patients information to the front office staff at ortho. Patients information will be printed and reviewed. Clinic will call patient with appointment information.
== END 2022-04-08 22:51 | disposition home or self-care (01) ==
PROVIDERS: Emergency Provider Emergency Medicine; PCP Family Medicine
DX: M51.16 Intervertebral disc disorders with radiculopathy, lumbar region (principal); Z79.84 Long term (current) use of oral hypoglycemic drugs; Z79.82 Long term (current) use of aspirin; Z87.891 Personal history of nicotine dependence
CPT/HCPCS: 72148; 80053; 85025; 85651; 86140; 99284

== ENCOUNTER → 2022-05-25 15:35 | Outpatient (BNVA) | payer MEDICARE, MEDICAID, SELFPAY | PROVIDERS: PCP Family Medicine; Referring Provider Emergency Medicine; Visit Provider Physician Assistant | DX: M43.16 Spondylolisthesis, lumbar region (principal); M21.371 Foot drop, right foot; M54.50 Low back pain, unspecified; K59.09 Other constipation | CPT/HCPCS: 72110; 99203 ==

== ENCOUNTER 2022-05-28 05:52 | Outpatient (CLI) | payer MEDICARE, MEDICAID, SELFPAY | END 2022-05-28 05:53 | disposition home or self-care (01) | LOC: RT 06-02 06:01 | PROVIDERS: PCP Family Medicine; Visit Provider Orthopaedic Surgery | DX: Z13.6 Encounter for screening for cardiovascular disorders (principal) | CPT/HCPCS: 93005 ==

== ENCOUNTER → 2022-06-07 12:26 | Outpatient (BNVA) | payer MEDICARE, MEDICAID, SELFPAY | PROVIDERS: PCP Family Medicine; Visit Provider Specialist | DX: M21.371 Foot drop, right foot (principal); M43.16 Spondylolisthesis, lumbar region; G47.419 Narcolepsy without cataplexy | CPT/HCPCS: 99214 ==

== ENCOUNTER → 2022-09-08 08:20 | Outpatient (BNVA) | payer MEDICARE, MEDICAID, SELFPAY | PROVIDERS: PCP Family Medicine; Visit Provider Specialist | DX: G47.419 Narcolepsy without cataplexy (principal); M21.371 Foot drop, right foot; M43.16 Spondylolisthesis, lumbar region; Z79.899 Other long term (current) drug therapy | CPT/HCPCS: 99214 ==

== ENCOUNTER 2022-10-26 10:13 | Outpatient (RCR) | payer MEDICARE, MEDICAID, SELFPAY | END 2022-11-08 23:59 | disposition home or self-care (01) | LOC: SPT 10:13 | PROVIDERS: Visit Provider Specialist | DX: M21.371 Foot drop, right foot (principal) | CPT/HCPCS: 97110; 97162 ==

== ENCOUNTER 2022-11-09 06:00 | Outpatient (RCR) | payer MEDICARE, MEDICAID, SELFPAY | END 2022-11-17 23:59 | disposition home or self-care (01) | LOC: SPT 06:00 | PROVIDERS: Visit Provider Specialist | DX: M21.371 Foot drop, right foot (principal) | CPT/HCPCS: 97110 ==

== ENCOUNTER → 2022-12-07 07:49 | Outpatient (BNVA) | payer MEDICARE, MEDICAID, SELFPAY | PROVIDERS: PCP Family Medicine; Visit Provider Specialist | DX: R29.90 Unspecified symptoms and signs involving the nervous system (principal); G47.419 Narcolepsy without cataplexy; M21.371 Foot drop, right foot | CPT/HCPCS: 99213 ==

== ENCOUNTER → 2023-02-28 13:16 | Outpatient (BNVA) | payer MEDICARE, MEDICAID, SELFPAY | PROVIDERS: PCP Family Medicine; Visit Provider Specialist | DX: G47.419 Narcolepsy without cataplexy (principal); M21.371 Foot drop, right foot; R01.1 Cardiac murmur, unspecified | CPT/HCPCS: 99213 ==

== ENCOUNTER → 2023-06-03 11:13 | Outpatient (BNVA) | payer OTHER, MEDICAID, SELFPAY | PROVIDERS: PCP Family Medicine; Visit Provider Specialist | DX: G47.419 Narcolepsy without cataplexy (principal); M21.371 Foot drop, right foot; M43.16 Spondylolisthesis, lumbar region; R29.90 Unspecified symptoms and signs involving the nervous system; R01.1 Cardiac murmur, unspecified | CPT/HCPCS: 99213 ==

== ENCOUNTER → 2023-09-09 10:33 | Outpatient (BNVA) | payer OTHER, MEDICAID, SELFPAY | PROVIDERS: PCP Family Medicine; Visit Provider Specialist | DX: G47.419 Narcolepsy without cataplexy (principal); R29.90 Unspecified symptoms and signs involving the nervous system | CPT/HCPCS: 99213 ==

== ENCOUNTER 2023-10-23 18:31 | Emergency (ER) | payer OTHER, MEDICAID, SELFPAY ==
[2023-10-23 18:32] VITALS: BP 144/84; PULSE 68; RESP 14; TEMP 36.9; O2SAT 98; BMI 27.4
--- NOTE | 2023-10-23 19:37 | CTR_ITS ---
PROCEDURE INFORMATION: Exam: CT Head Without Contrast Exam date and time: 10/23/2023 7:56 PM Age: 58 years old Clinical indication: Patient HX: C/O dizziness with nausea. History of vertigo. TECHNIQUE: Imaging protocol: Computed tomography of the head without contrast. Radiation optimization: All CT scans at this facility use at least one of these dose optimization techniques: automated exposure control; mA and/or kV adjustment per patient size (includes targeted exams where dose is matched to clinical indication); or iterative reconstruction. COMPARISON: MR angio head wo con [id number] 02/12/2022 10:05 AM RADIATION DOSE METRICS: Total DLP (mGy-cm): 1055.88 FINDINGS: Brain: Normal. No hemorrhage. Unremarkable white matter. No mass effect. Cerebral ventricles: No ventriculomegaly. Paranasal sinuses: Visualized sinuses are unremarkable. No fluid levels. Mastoid air cells: Visualized mastoid air cells are well aerated. Bones: Unremarkable. No acute fracture. Soft tissues: Unremarkable. CT/CT head wo con* [id number] IMPRESSION: No acute intracranial abnormality.
[2023-10-23 19:48] LABS: Basophils % 0.3 %; Eosinophils # 0.1 10^3/uL (0.0-0.8); Lymphocytes # 2.7 10^3/uL (0.8-4.8); Mean Corpuscular HGB Conc 32.4 g/dL (30-55); Mean Corpuscular Hemoglobin 28.6 pg (27-33); Mean Corpuscular Volume 88.1 fl (85-98); Mean Platelet Volume 9.5 fL (7.4-10.4); Monocytes # 0.6 10^3/uL (0.2-0.9); Monocytes % 6.9 %; Neutrophils # 5.46 10^3/uL (1.8-7.7); Neutrophils % 60.9 %; Nucleated Red Blood Cells % 0 %; Platelet Count 356 10^3/cmm (157-399); Red Blood Count 5.11 10^6/uL (3.85-5.65); Red Cell Distribution Width 13.5 % (12.1-15.1); White Blood Count 8.97 10^3/uL (3.29-11.43)
--- NOTE | 2023-10-23 19:48 | ECG_ITS ---
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 Measurements Intervals [place] Rate: 64 P: 40 MO: 143 QRS: 9 QRSD: 89 T: 67 QT: 392 QTc: 406 Interpretive Statements SINUS RHYTHM LOW QRS VOLTAGE IN PRECORDIAL LEADS [QRS DEFLECTION < 1.0 mV IN CHEST LEADS] MINIMAL VOLTAGE CRITERIA FOR LVH, CONSIDER NORMAL VARIANT [MEETS CRITERIA IN ONE OF: R(aVL), S(V1), R(V5), R(V5/V6)+S(V1)] POSSIBLE SEPTAL MYOCARDIAL INFARCTION , PROBABLY OLD [30 ms Q WAVE IN V1/V2] Compared to ECG 05/28/2022 13:16:52 Myocardial infarct finding now present T-wave abnormality no longer present Electronically Signed On 10-24-2023 9:45:35 CDT by David Lara M.D. [id number]
--- NOTE | 2023-10-23 19:59 | W.ED.DIZZY ---
HPI - Dizziness General: Chief Complaint: Dizziness Stated Complaint: dizziness Time Seen by Provider: 10/23/23 19:28 History of Present Illness: HPI Narrative: 58-year-old female complains of vertiginous dizziness today. She has had this symptom before. However, she is also complaining of headache, paresthesias and tingling to her right side of her scalp, significant nausea. No focal weakness. No language or vision problems. She is being worked up for previous diagnosis of vertigo and left-sided hearing loss currently by ENT evidently. She denies fever. No problems with coordination. PFSH ED PFSH: Medical History URI with cough and congestion TMJ tenderness, left Diabetes Narcolepsy without cataplexy Sinusitis, acute Post-traumatic stress disorder, chronic Surgical History H/O: hysterectomy S/P cholecystectomy H/O tubal ligation Previous back surgery Family History Mother Diabetes Hyperlipidemia Hypertension Heart disease Grandmother Diabetes maternal Family/Other Breast cancer maternal aunt, age onset 30's maternal cousin, age onset 30's Ovarian cancer maternal aunt x2 age onset 60's, 70's Denies family history of Colon cancer Clotting disorder Anesthesia complication Bleeding disorder Uterine cancer Thyroid disease Stroke Social History Smoking and tobacco/nicotine status: never used tobacco/nicotine Quit status (tobacco/nicotine): has quit using Year quit tobacco: 1995 Alcohol intake: former Former alcohol use details: years ago Substance/Drug Use: never Physical Exam Const: COMMON NORMALS: no acute distress and alert GENERAL APPEARANCE: cooperative; not ill appearing and not frail appearing HENMT: COMMON NORMALS: normocephalic, atraumatic and Normal external nose present HEAD & SCALP: normocephalic and atraumatic FACE & SINUS: normal facial exam and face symmetric NOSE: Normal external nose present Eye: COMMON NORMALS: Equal, round and reactive pupils present and EOMs intact bilaterally PUPIL: Yes Equal, round and reactive pupils present Neck/C-Spine: GENERAL: Yes trachea midline Chest: CHEST: Yes Symmetrical chest wall rise Resp: COMMON NORMALS: normal respiratory effort, No retractions, No use of accessory muscles and clear to auscultation bilaterally AUSCULTATION: clear to auscultation bilaterally Cardio: COMMON NORMALS: regular rate and regular rhythm RATE: regular rate RHYTHM: regular rhythm GI: COMMON NORMALS: Normal to inspection, nondistended, normoactive bowel sounds present Extremity: COMMON NORMALS: no pedal edema Neuro: ILSA COMA SCALE: document GCS findings Lisa coma scale eye opening: Spontaneous [place] coma scale verbal response: Orientated [place] coma scale motor response: Obey commands Lisa coma scale total score: 15 SENSORIUM/ORIENTATION: Yes alert CRANIAL NERVES: Yes CN normal except as noted COORDINATION/BALANCE: [id number] test normal and [id number] test normal SPEECH: speech normal SENSORY EXAM: Yes extremities (intact) MOTOR EXAM: Pronator motor function not present and Normal motor muscle tone present throughout COORDINATION: [id number] test normal and [id number]-[id number] test normal Psych: COMMON NORMALS: speech normal SPEECH: Yes normal speech Skin: COMMON NORMALS: no rashes or lesions noted GENERAL SKIN EXAM: no rashes or lesions noted Course Vital Signs: Vital signs: Vital Signs Temperature 98.5 F 10/23/23 18:32 Pulse Rate 79 10/23/23 23:04 Respiratory Rate 16 10/23/23 23:04 Blood Pressure 117/72 10/23/23 23:04 Pulse Oximetry 94 10/23/23 23:04 Oxygen Delivery Me thod Room Air 10/23/23 22:06 [facility] - Dizziness Medical Decision Making 58-year-old female with a history of vertigo, left sided hearing loss, and tinnitus. She presents with vertigo. She also has a full feeling with tingling to the right side of her head. Head CT is negative. CBC and BMP are not remarkable. Urinalysis is not remarkable. She is afebrile. Symptoms are somewhat improved after a migraine type cocktail here, with medication for vertigo. She will be allowed home on meclizine. Close outpatient follow-up to continue her outpatient workup. Return for new symptoms. Lab Data 10/23/23 19:40 10/23/23 19:[address] 10/23/23 19:37 IMPRESSION: No acute intracranial abnormality. Laboratory Results WBC 8.97 10^3/uL (3.29-11.43) 10/23/23 19:40 RBC 5.11 10^6/uL (3.85-5.65) 10/23/23 19:40 Hgb 14.60 g/dL (11.27-16.99) 10/23/23 19:40 Hct 45.0 % (36-47) 10/23/23 19:40 MCV 88.1 fl (85-98) 10/23/23 19:40 MCH 28.6 pg (27-33) 10/23/23 19:40 MCHC 32.4 g/dL (30-55) 10/23/23 19:40 RDW 13.5 % (12.1-15.1) 10/23/23 19:40 Plt Count 356 10^3/cmm (157-399) 10/23/23 19:40 MPV 9.5 fL (7.4-10.4) 10/23/23 19:40 Neut % (Auto) 60.9 % 10/23/23 19:40 Lymph % (Auto) 30.0 % 10/23/23 19:40 [place] % (Auto) 6.9 % 10/23/23 19:40 Eos % (Auto) 1.0 % 10/23/23 19:40 Baso % (Auto) 0.3 % 10/23/23 19:40 Neut # (Auto) 5.46 10^3/uL (1.8-7.7) 10/23/23 19:40 Lymph # (Auto) 2.7 10^3/uL (0.8-4.8) 10/23/23 19:40 [place] # (Auto) 0.6 10^3/uL (0.2-0.9) 10/23/23 19:40 Eos # (Auto) 0.1 10^3/uL (0.0-0.8) 10/23/23 19:40 Baso # (Auto) 0.0 10^3/uL (0.0-0.1) 10/23/23 19:40 Nucleated RBC % (auto) 0 % 10/23/23 19:40 Nucleated RBCs # 0.0 /100WBC 10/23/23 19:40 PT 12.30 SECONDS (12.1-14.9) 10/23/23 19:40 INR 0.89 (0.8-1.2) 10/23/23 19:40 APTT 23.2 SECONDS (23.9-36.7) L 10/23/23 19:40 Sodium 142 mmol/L (136-145) 10/23/23 19:40 Potassium 4.2 mmol/L (3.5-5.1) 10/23/23 19:40 Chloride 103 mmol/L (98-107) 10/23/23 19:40 Carbon Dioxide 25 mmol/L (22-29) 10/23/23 19:40 Anion Gap 18.2 (5-19) 10/23/23 19:40 BUN 32 mg/dL (6-20) H 10/23/23 19:40 Creatinine 0.7 mg/dL (0.5-0.9) 10/23/23 19:40 GFR Calculation 86.6 mL/min (90-130) L 10/23/23 19:40 Glucose 111 mg/dL (65-115) 10/23/23 19:40 Calculated Osmolality 302 mOsm/kg (285-295) H 10/23/23 19:40 Calcium 10.1 mg/dL (8.5-10.5) 10/23/23 19:40 Total Bilirubin 0.4 mg/dL (0.15-1.2) 10/23/23 19:40 AST 21 U/L (0-32) 10/23/23 19:40 ALT 26 U/L (0-33) 10/23/23 19:40 Alkaline Phosphatase 51 U/L (35-105) 10/23/23 19:40 C-Reactive Protein 3.0 mg/L (0.0-4.9) 10/23/23 19:40 Total Protein 7.2 g/dL (6.6-8.7) 10/23/23 19:40 Albumin 4.7 g/dL (3.5-5.2) 10/23/23 19:40 Globulin 2.5 g/dL (1.3-4.6) 10/23/23 19:40 Urine Color Yellow (Yellow) 10/23/23 21:40 Urine Appearance Clear (CLEAR) 10/23/23 21:40 Urine pH 5 (5-7) 10/23/23 21:40 Ur Specific [place] 1.030 (1.005-1.030) 10/23/23 21:40 Urine Protein Neg (Negative) 10/23/23 21:40 Urine Glucose (UA) Norm (Normal) 10/23/23 21:40 Urine Ketones Negative (Negative) 10/23/23 21:40 Urine Blood Neg (Negative) 10/23/23 21:40 Urine Nitrate Negative (Negative) 10/23/23 21:40 Urine Bilirubin Neg (Negative) 10/23/23 21:40 Urine Urobilinogen Neg mg/dL (Negative) 10/23/23 21:40 Ur Leukocyte Esterase Trace (Negative) H 10/23/23 21:40 Urine RBC 0-4 /hpf (0-2) H 10/23/23 21:40 Urine WBC 0-4 /hpf (0-5) H 10/23/23 21:40 Ur Squamous Epith Cells 0-4 /hpf (0-5) H 10/23/23 21:40 Amorphous Sediment Not Reportable 10/23/23 21:40 Urine Bacteria Trace /hpf (NONE) 10/23/23 21:40 Urine Mucus Trace /hpf 10/23/23 21:40 All radiology interpretation(s) finalized by discharge Discharge Plan Discharge Patient Disposition: Home Clinical Impression: Vertigo Condition: Stable Prescriptions: New meclizine 25 mg tablet 25 mg PO TID Qty: 30 0RF Discontinued meclizine 12.5 mg tablet 12.5 mg PO TID PRN (Reason: dizziness) Qty: 20 0RF No Action metformin 1,000 mg tablet 1,000 mg PO BID aspirin [Aspir-Nahomy] 325 mg tablet,delayed release (DR/EC) 325 mg PO DAILY omeprazole 20 mg capsule,delayed release(DR/EC) 20 mg PO DAILY fenofibrate micronized 200 mg capsule 200 mg PO DAILY hydrocodone-acetaminophen 10-325 mg tablet 1 tab PO Q4H PRN (Reason: Pain) ibandronate [Boniva] 150 mg tablet 150 mg PO .monthly guaifenesin 600 mg tablet extended release 12hr 600 mg PO BID Qty: 14 0RF fluticasone propionate [Flonase Allergy Relief] 50 mcg/actuation spray,suspension 1 spray intranasal BID PRN (Reason: allergy symptoms) Qty: 16 0RF Rx Instructions: administer into each nostril (DME) AFO right foot 0 .Route .MEDSUPPLY Qty: 1 0RF Rx Instructions: As directed methylphenidate HCl 20 mg tablet extended release 20 mg PO BID 30 Days Qty: 90 0RF Rx Instructions: Take two tablet in the AM and one tablet in the afternoon Discharge Orders: Discharge ED (Routine); Ordered 10/23/23 Ordered By: Klaus Finch Referrals: Dereck Hernandez [Primary Care Provider] - Patient Instructions: Vertigo (ED), Opioid Safety, Pain Management Activity Restrictions/Additional Instructions: Medication as directed. Take 3 times daily scheduled for the first 48 hours, then you may begin to decrease dose. Follow-up with your ENT surgeon, and your doctor. Return for worsening symptoms despite treatment. Coding Level of Care Code ED Kiln Repairer for Jhoan Aviles NIH stroke score NIHSS Level Of Consciousness - 1a: 0 Level Of Consciousness Questions - 1b: Both Correct Level Of Consciousness Commands - 1c: Both Correct Best Gaze - 2: Normal Visual [place] - 3: No Visual Loss Facial Palsy - 4: Normal Motor Arm Right - 5: No Drift Motor Arm Left - 5: No Drift Motor Leg Right - 6: No Drift Motor Leg Left - 6: No Drift Limb Ataxia - 7: Absent Sensory - 8: Normal Best Language - 9: No Aphasia Dysarthia - 10: Normal Extinction And Inattention - 11: 0 Score Total Score: 0
[2023-10-23 20:07] LABS: Alanine Aminotransferase 26 U/L (0-33); Albumin Level 4.7 g/dL (3.5-5.2); Alkaline Phosphatase 51 U/L (35-105); Anion Gap 18.2 (5-19); Aspartate Amino Transferase 21 U/L (0-32); Blood Urea Nitrogen 32 mg/dL (6-20); Calcium 10.1 mg/dL (8.5-10.5); Carbon Dioxide 25 mmol/L (22-29); Chloride 103 mmol/L (98-107); Globulin 2.5 g/dL (1.3-4.6); Glomerular Filtration Rate 86.6 mL/min (90-130); Glucose 111 mg/dL (65-115); Osmolality Calculated 302 mOsm/kg (285-295); Potassium 4.2 mmol/L (3.5-5.1); Sodium 142 mmol/L (136-145); Total Bilirubin 0.4 mg/dL (0.15-1.2); Total Protein 7.2 g/dL (6.6-8.7)
[2023-10-23] MEDS: sodium chloride 0.9% 500 ML 999 ML IV (20:19)
[2023-10-23] MEDS: LORazepam 2 mg/mL INJ 1 mL 1 MG IVP (20:22)
[2023-10-23] MEDS: ketorolac 30 mg/mL INJ IVP (20:24)
[2023-10-23] MEDS: metoclopramide 5 mg/mL SDV 2 mL 10 MG IVP (20:25)
[2023-10-23 20:35] LABS: INR 0.89 (0.8-1.2); Partial Thromboplastin Time 23.2 SECONDS (23.9-36.7)
[2023-10-23] MEDS: prochlorperazine 10 mg/2 mL Inj IVP (22:02)
[2023-10-23 22:06] VITALS: BP 113/68; PULSE 70; RESP 16; O2SAT 94
[2023-10-23] MEDS: fentaNYL 50 mcg/mL INJ 2mL IVP (22:06)
[2023-10-23 22:17] LABS: Add Urine Microscopic? YES; Bacteria Urine TRACE /hpf; Bilirubin Urine Neg (Negative); Blood Urine Neg (Negative); Glucose Urine UA Norm (Normal); Ketones Urine Negative (Negative); Leukocyte Esterase Urine Trace (Negative); Mucus Urine TRACE /hpf; Nitrate Urine Negative (Negative); Protein Urine Neg (Negative); RBC Urine 0-4 /hpf (0-2); Squamous Epithelial Cell Urine 0-4 /hpf (0-5); Urine Appearance Clear (CLEAR); Urine Color Yellow (Yellow); Urobilinogen Urine Neg (Negative); WBC Urine 0-4 /hpf (0-5); pH Urine 5 (5-7)
[2023-10-23 23:04] VITALS: BP 117/72; PULSE 79; RESP 16; O2SAT 94
== END 2023-10-23 23:05 | disposition home or self-care (01) ==
PROVIDERS: Emergency Provider Emergency Medicine; PCP Family Medicine
DX: R42 Dizziness and giddiness (principal); Z79.82 Long term (current) use of aspirin; Z79.84 Long term (current) use of oral hypoglycemic drugs; Z87.891 Personal history of nicotine dependence; E11.9 Type 2 diabetes mellitus without complications
CPT/HCPCS: 70450; 80053; 81001; 85025; 85610; 85730; 86140; 93005; 96361; 96374; 96375; 99285; J0780; J1885; J2060; J2765; J3010; J7040

== ENCOUNTER 2023-11-10 07:45 | Outpatient (CLI) | payer OTHER, MEDICAID, SELFPAY ==
--- NOTE | 2023-11-10 07:48 | MR_ITS ---
WS: [id number] MRI BRAIN WITH HIGH-RESOLUTION IMAGING THROUGH THE INTERNAL AUDITORY CANALS WITHOUT AND WITH CONTRAST HISTORY: PULSATILE TINNITUS,LEFT EAR/SENSORINEURAL HEARING LOSS,BILAT COMPARISON: 01/19/2022 TECHNIQUE: Multiplanar, multisequence imaging is performed through the brain. Additional 3 mm imaging performed in multiple planes through the internal auditory canal. Postcontrast imaging with 15 ml's of MultiHance. No acute intracranial hemorrhage, midline shift, edema or mass effect. Normal diffusion imaging. No significant atrophy or prior infarct. No ischemic changes. No small vess el disease. Posterior fossa is also negative. Ventricles and extra-axial spaces are normal. No inferior displacement of cerebellar tonsils. Clivus and pituitary gland are normal. Internal and external auditory canals: Unremarkable. There is small nodular signal intensity is adjac ent to the fundus of the internal acoustic canal on the LEFT. This was also present on prior studies with no change. On the thin high-resolution images these do not appear to be connected or involved wi th the nerve roots. No enhancing mass identified. Trigeminal nerve root entry zones are negative also . No cerebellopontine angle abnormality. Cranial nerves VII and VIII complexes: See above. Cerebellopontine angles: Normal. Paranasal sinuses: Normal. Mastoid air cells: Normal. Calvarium and scalp: Normal. Visualized [place] of and dural venous sinuses demonstrate no abnormality. MR/MR iac's wo/w con* [id number] IMPRESSION: 1. No mass or abnormality noted along the internal auditory canals. No change since the prior MRI of 01/19/2022. 2. No mass at the cerebellopontine angle. 3. No ischemia or prior infarct.
[2023-11-10] MEDS: gadobenate dimeglumine 20 mL vial 15 ML IV (08:47)
== END 2023-11-10 07:46 | disposition home or self-care (01) ==
LOC: RAD 07:45
PROVIDERS: PCP Family Medicine; Visit Provider Specialist
DX: H93.A2 Pulsatile tinnitus, left ear (principal); H90.3 Sensorineural hearing loss, bilateral
CPT/HCPCS: 70553; A9577

== ENCOUNTER → 2023-12-06 15:24 | Outpatient (BNVA) | payer OTHER, MEDICAID, SELFPAY | PROVIDERS: PCP Family Medicine; Visit Provider Specialist | DX: G47.419 Narcolepsy without cataplexy (principal); R42 Dizziness and giddiness; R29.90 Unspecified symptoms and signs involving the nervous system | CPT/HCPCS: 99212; G0463 ==

== ENCOUNTER → 2024-01-20 15:03 | Outpatient (BNVA) | payer OTHER, MEDICAID, SELFPAY | PROVIDERS: PCP Family Medicine; Visit Provider Specialist | DX: H91.90 Unspecified hearing loss, unspecified ear (principal); E11.69 Type 2 diabetes mellitus with other specified complication; R42 Dizziness and giddiness; R29.90 Unspecified symptoms and signs involving the nervous system; G47.419 Narcolepsy without cataplexy | CPT/HCPCS: 36415; 82607; 83036; 84439; 84443; 85651; 86160; 86162; 86235; 86255; 86376; 99214 ==

== ENCOUNTER → 2024-04-19 11:12 | Outpatient (BNVA) | payer OTHER, MEDICAID, SELFPAY | PROVIDERS: PCP Family Medicine; Visit Provider Specialist | DX: E11.69 Type 2 diabetes mellitus with other specified complication; M43.16 Spondylolisthesis, lumbar region; R42 Dizziness and giddiness; R29.90 Unspecified symptoms and signs involving the nervous system; G47.419 Narcolepsy without cataplexy; H91.92 Unspecified hearing loss, left ear | CPT/HCPCS: 99214 ==

== ENCOUNTER → 2024-05-28 15:09 | Outpatient (BNVA) | payer OTHER, MEDICAID, SELFPAY | PROVIDERS: PCP Family Medicine; Visit Provider Podiatrist Foot & Ankle Surgery | DX: M21.371 Foot drop, right foot (principal); G62.9 Polyneuropathy, unspecified; E11.42 Type 2 diabetes mellitus with diabetic polyneuropathy; Z79.84 Long term (current) use of oral hypoglycemic drugs | CPT/HCPCS: 99203 ==

== ENCOUNTER → 2024-08-01 15:06 | Outpatient (BNVA) | payer OTHER, MEDICAID, SELFPAY | PROVIDERS: PCP Family Medicine; Visit Provider Specialist | DX: G47.419 Narcolepsy without cataplexy (principal); H91.90 Unspecified hearing loss, unspecified ear; E11.69 Type 2 diabetes mellitus with other specified complication | CPT/HCPCS: 99213 ==

== ENCOUNTER 2024-08-13 16:59 | Emergency (ER) | payer OTHER, MEDICAID, SELFPAY ==
[2024-08-13 17:08] VITALS: BP 169/94; PULSE 67; TEMP 36.8; O2SAT 98; BMI 26.6
--- NOTE | 2024-08-13 18:18 | XRR_ITS ---
PROCEDURE INFORMATION: Exam: XR Chest Exam date and time: 08/13/2024 6:23 PM Age: 59 years old Clinical indication: Pain; Chest pressure; Additional info: Weakness TECHNIQUE: Imaging protocol: Radiologic exam of the chest. Views: 1 view. COMPARISON: CR XR chest 1V portable [id number] 06/14/2019 7:51 PM FINDINGS: Lungs: Unremarkable. No consolidation or mass. Pleural spaces: Unremarkable. No pleural effusion. No pneumothorax. Heart/Mediastinum: Unremarkable. No cardiomegaly. Bones/joints: Unremarkable. XR/XR chest 1V portable [id number] IMPRESSION: No acute findings.
--- NOTE | 2024-08-13 18:18 | ECG_ITS ---
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 Measurements Intervals [place] Rate: 62 P: 42 [place]: 151 QRS: 2 QRSD: 82 T: 73 QT: 394 QTc: 401 Interpretive Statements SINUS RHYTHM POSSIBLE LEFT ATRIAL ENLARGEMENT [-0.1mV P-WAVE IN V1/V2] LEFT VENTRICULAR HYPERTROPHY AND ST-T CHANGE [VOLTAGE CRITERIA PLUS ST/T ABNORMALITY] INTERPRETATION BASED ON A DEFAULT AGE OF 40 YEARS Compared to ECG 10/23/2023 19:48:52 ST (T wave) deviation now present Myocardial infarct finding no longer present Electronically Signed On 08-15-2024 23:29:48 CDT by She Wilks M.D. [email or web address] [id number]
[2024-08-13 18:38] LABS: Basophils % 0.5 %; Eosinophils # 0.1 10^3/uL (0.0-0.8); Hematocrit 43.9 % (36-47); Lymphocytes # 2.2 10^3/uL (0.8-4.8); Lymphocytes % 27.5 %; Mean Corpuscular HGB Conc 31.4 g/dL (30-55); Mean Corpuscular Hemoglobin 27.8 pg (27-33); Mean Corpuscular Volume 88.5 fl (85-98); Mean Platelet Volume 9.5 fL (7.4-10.4); Monocytes # 0.6 10^3/uL (0.2-0.9); Monocytes % 7.5 %; Neutrophils # 4.92 10^3/uL (1.8-7.7); Nucleated Red Blood Cells % 0 %; Platelet Count 358 10^3/cmm (157-399); Red Blood Count 4.96 10^6/uL (3.85-5.65); Red Cell Distribution Width 13.7 % (12.1-15.1); White Blood Count 7.82 10^3/uL (3.29-11.43)
[2024-08-13 18:56] LABS: Alanine Aminotransferase 21 U/L (0-33); Albumin Level 4.9 g/dL (3.5-5.2); Alkaline Phosphatase 62 U/L (35-105); Aspartate Amino Transferase 20 U/L (0-32); Blood Urea Nitrogen 21 mg/dL (6-20); Carbon Dioxide 24 mmol/L (22-29); Chloride 101 mmol/L (98-107); Creatinine Clr Calc Pharmacy 123.9132; Globulin 2.4 g/dL (1.3-4.6); Glomerular Filtration Rate 127.2 mL/min (90-130); Glucose 111 mg/dL (65-115); Magnesium 1.9 mg/dL (1.7-2.3); Osmolality Calculated 294 mOsm/kg (285-295); Sodium 140 mmol/L (136-145); Total Bilirubin 0.3 mg/dL (0.15-1.2); Total Protein 7.3 g/dL (6.6-8.7); Troponin(5th) Baseline 14 ng/L (0-10)
[2024-08-13 19:44] LABS: Bilirubin Urine Negative (Negative); Blood Urine Negative (Negative); Glucose Urine UA Negative (Normal); Ketones Urine Negative (Negative); Leukocyte Esterase Urine 1+ (Negative); Nitrate Urine Negative (Negative); Protein Urine Negative (Negative); Specific Gravity, Urine 1.011 (1.005-1.030); Urine Appearance Clear (CLEAR); Urine Color Yellow (Yellow); Urobilinogen Urine 0.2 mg/dL (Negative)
[2024-08-13 19:49] LABS: Add Urine Microscopic? YES; Bacteria Urine None Seen /hpf; Hyaline Casts Urine 0-4 /lpf; RBC Urine 0-2 /hpf (0-2); Squamous Epithelial Cell Urine 0-5 /hpf (0-5); WBC Urine 0-5 /hpf (0-5)
[2024-08-13 20:08] VITALS: BP 146/101; PULSE 65; RESP 18; O2SAT 95
--- NOTE | 2024-08-13 20:08 | W.ED.GENADLT ---
HPI - General Adult General: Chief complaint: General Medical Stated complaint: dizzy, lightheaded, burning chest pain Time Seen by Provider: 08/13/24 19:18 History of Present Illness: 59-year-old female presents with some generalized malaise. Reports she has some episodes of dizziness/lightheadedness. Maybe some burning chest pain. Patient reports at the time I saw her that this is an proved that she has has a mild headache. She patient has a history of migraines but reports she has not had a headache in a while. Patient was also concerned that her blood pressure was a little high. She has no known history of hypertension. Associated symptoms: Reports chest pain, headache(s) and malaise; Deny dyspnea, nausea, palpitations or vomiting Related Data Home Medications ?Medication ?Instructions ?Recorded ?Confirmed aspirin 325 mg tablet,delayed 325 mg PO DAILY 05/22/19 08/01/24 release (Aspir-Nahomy) fenofibrate micronized 200 mg 200 mg PO DAILY 05/22/19 08/01/24 capsule hydrocodone 10 mg-acetaminophen 1 tab PO Q4H PRN Pain 05/22/19 08/01/24 325 mg tablet metformin 1,000 mg tablet 1,000 mg PO BID 05/22/19 08/01/24 omeprazole 20 mg capsule,delayed 20 mg PO DAILY 05/22/19 08/01/24 release ibandronate 150 mg tablet (Boniva) 150 mg PO .monthly 06/23/20 08/01/24 Previous Rx's ?Medication ?Instructions ?Recorded AFO right foot ##1 10/26/22 diabetic shoes and 3 pairs of #1 ea 06/19/24 inserts methylphenidate HCl 20 mg biphasic 40 mg (2 x 20 mg) PO .COMPLEX 08/01/24 50-50 capsule,extended release days #240 ea (Ritalin LA) methylphenidate HCl 20 mg biphasic 40 mg (2 x 20 mg) PO .COMPLEX 30 08/01/24 50-50 capsule,extended release days #240 ea (Ritalin LA) methylphenidate HCl 20 mg biphasic 40 mg (2 x 20 mg) PO .COMPLEX 08/01/24 50-50 capsule,extended release days #240 ea (Ritalin LA) Allergies Allergy/AdvReac Type Severity Reaction Status Date / Time alendronate sodium (From Allergy unknown Verified 08/13/24 17:17 Fosamax) carisoprodol (From Soma) Allergy unknown Verified 08/13/24 17:17 divalproex sodium (From Allergy unknown Verified 08/13/24 17:17 Depakote) gabapentin (From Neurontin) Allergy unknown Verified 08/13/24 17:17 morphine Allergy itching Verified 08/13/24 17:17 naproxen Allergy unknown Verified 08/13/24 17:17 risedronate sodium (From Allergy Unknown Verified 08/13/24 17:17 Actonel) Sulfa (Sulfonamide Allergy tongue Verified 08/13/24 17:17 Antibiotics) swells tramadol (From Ultram) Allergy unknown Verified 08/13/24 17:17 zonisamide (From Zonegran) Allergy tongue Verified 08/13/24 17:17 swells ciprofloxacin (From Cipro) AdvReac hives Verified 08/13/24 17:17 Review of Systems Const: Reports: malaise Card: Reports: chest pain; Denies: palpitations or irregular heart rhythm Resp: Denies: dyspnea or productive cough GI: Denies: abdominal pain, nausea or vomiting Neuro: Reports: headache(s) and dizziness PFSH ED PFSH: Medical History URI with cough and congestion TMJ tenderness, left Diabetes Narcolepsy without cataplexy Sinusitis, acute Post-traumatic stress disorder, chronic Surgical History H/O: hysterectomy S/P cholecystectomy H/O tubal ligation Previous back surgery Family History Mother Diabetes Hyperlipidemia Hypertension Heart disease Grandmother Diabetes maternal Family/Other Breast cancer maternal aunt, age onset 30's maternal cousin, age onset 30's Ovarian cancer maternal aunt x2 age onset 60's, 70's Denies family history of Colon cancer Clotting disorder Anesthesia complication Bleeding disorder Uterine cancer Thyroid disease Stroke Social History Smoking and tobacco/nicotine status: never used tobacco/nicotine Quit status (tobacco/nicotine): has quit using Year quit tobacco: 1995 Alcohol intake: former Former alcohol use details: years ago Substance/Drug Use: never Physical Exam Const: COMMON NORMALS: no acute distress, patient oriented x3, no limitations, healthy appearing and alert Resp: COMMON NORMALS: normal respiratory effort and clear to auscultation bilaterally AUSCULTATION: clear to auscultation bilaterally Cardio: COMMON NORMALS: regular rate and regular rhythm RATE: regular rate RHYTHM: regular rhythm GI: COMMON NORMALS: Soft to palpation and non-tender PALPATION: Yes Soft to palpation Extremity: COMMON NORMALS: normal to inspection, full ROM and capillary refill normal Neuro: COMMON NORMALS: patient oriented x3, CN's II-XII intact bilaterally, moves all extremities and no focal motor deficits SENSORIUM/ORIENTATION: Yes alert Psych: COMMON NORMALS: mental status grossly normal, Normal thought process present, cooperative, normal affect and speech normal SPEECH: Yes normal speech THOUGHT PROCESS: Normal thought process present Skin: COMMON NORMALS: no rashes or lesions noted and turgor normal GENERAL SKIN EXAM: no rashes or lesions noted and turgor normal Course Vital Signs: Vital signs: Vital Signs Temperature 98.2 F 08/13/24 17:08 Pulse Rate 65 08/13/24 20:08 Respiratory Rate 18 08/13/24 20:08 Blood Pressure 146/101 08/13/24 20:08 Pulse Oximetry 95 08/13/24 20:08 Oxygen Delivery Me thod Room Air 08/13/24 20:08 [facility] - General Adult Medical Decision Making Patient's diagnostic studies were ordered reviewed and showed no significant acute findings. Patient with due to negative troponins. Patient is EKG shows no acute concerning findings. Patient with negative chest x-ray. Patient with vague dizziness and headache. Discussed with her that it could be related ears or congestion versus other etiology. Patient did have mild elevated blood pressure when she first arrived but was down at discharge. Discussed with her need to follow-up with her primary care provider to have this reevaluated. Patient was stable and discharged home Lab Data 08/13/24 18:32 08/13/24 18:32 Radiology Impressions Chest X-Ray 08/13/24 18:18 IMPRESSION: No acute findings. Laboratory Results WBC 7.82 10^3/uL (3.29-11.43) 08/13/24 18:32 RBC 4.96 10^6/uL (3.85-5.65) 08/13/24 18:32 Hgb 13.80 g/dL (11.27-16.99) 08/13/24 18: Hct 43.9 % (36-47) 08/13/24 18: MCV 88.5 fl (85-98) 08/13/24 18: MCH 27.8 pg (27-33) 08/13/24: MCHC 31.4 g/dL (30-55) 08/13/24 18: RDW 13.7 % (12.1-15.1) 08/13/24 18: Plt Count 358 10^3/cmm (157-399) 08/13/24: MPV 9.5 fL (7.4-10.4) 08/13/24 18: Neut % (Auto) 63.0 % 08/13/24 18: Lymph % (Auto) 27.5 % 08/13/24 18: [place] % (Auto) 7.5 % 08/13/24 18: Eos % (Auto) 1.0 % 08/13/24 18: Baso % (Auto) 0.5 % 08/13/24: Neut # (Auto) 4.92 10^3/uL (1.8-7.7) 08/13/24 18: Lymph # (Auto) 2.2 10^3/uL (0.8-4.8) 08/13/24 18: [place] # (Auto) 0.6 10^3/uL (0.2-0.9) 08/13/24 18: Eos # (Auto) 0.1 10^3/uL (0.0-0.8) 08/13/24 18: Baso # (Auto) 0.0 10^3/uL (0.0-0.1) 08/13/24: Nucleated RBC % (auto) 0 % 08/13/24: Nucleated RBCs # 0.0 /100WBC 08/13/24 18: Sodium 140 mmol/L (136-145) 08/13/24 18: Potassium 4.0 mmol/L (3.5-5.1) 08/13/24 18: Chloride 101 mmol/L (98-107) 08/13/24 18:32 Carbon Dioxide 24 mmol/L (22-29) 08/13/24 18:32 Anion Gap 19.0 (5-19) 08/13/24 18:32 BUN 21 mg/dL (6-20) H 08/13/24 18:32 Creatinine 0.5 mg/dL (0.5-0.9) 08/13/24 18:32 GFR Calculation 127.2 mL/min (90-130) 08/13/24 18: Glucose 111 mg/dL (65-115) 08/13/24 18:32 Calculated Osmolality 294 mOsm/kg (285-295) 08/13/24 18: Calcium 10.0 mg/dL (8.5-10.5) 08/13/24 18: Magnesium 1.9 mg/dL (1.7-2.3) 08/13/24 18: Total Bilirubin 0.3 mg/dL (0.15-1.2) 08/13/24 18:32 AST 20 U/L (0-32) 08/13/24 18: ALT 21 U/L (0-33) 08/13/24 18: Alkaline Phosphatase 62 U/L (35-105) 08/13/24 18:32 Troponin T Baseline 14 ng/L (0-10) H 08/13/24 18:32 Troponin T 120 Minute 13.65 ng/L (0-10) H 08/13/24 20:10 Delta Troponin T -0.35 ABS# (0-10) L 08/13/24 20:10 Total Protein 7.3 g/dL (6.6-8.7) 08/13/24 18: Albumin 4.9 g/dL (3.5-5.2) 08/13/24 18: Globulin 2.4 g/dL (1.3-4.6) 08/13/24 18:32 Urine Color Yellow (Yellow) 08/13/24 18: Urine Appearance Clear (CLEAR) 08/13/24 18:25 Urine pH 6.0 (5-7) 08/13/24 18:25 Ur Specific [place] 1.011 (1.005-1.030) 08/13/24 18:25 Urine Protein Negative (Negative) 08/13/24 18: Urine Glucose (UA) Negative (Normal) 08/13/24 18:25 Urine Ketones Negative (Negative) 08/13/24 18:25 Urine Blood Negative (Negative) 08/13/24 18:25 Urine Nitrate Negative (Negative) 08/13/24 18:25 Urine Bilirubin Negative (Negative) 08/13/24 18:25 Urine Urobilinogen 0.2 mg/dL (Negative) 08/13/24 18:25 Ur Leukocyte Esterase 1+ (Negative) A 08/13/24 18:25 Urine RBC 0-2 /hpf (0-2) 08/13/24 18:25 Urine WBC 0-5 /hpf (0-5) 08/13/24 18:25 Ur Squamous Epith Cells 0-5 /hpf (0-5) 08/13/24 18: Amorphous Sediment Not Reportable 08/13/24 18:25 Urine Bacteria None seen /hpf (NONE) 08/13/24 18: Hyaline Casts 0-4 /lpf H 08/13/24 18:25 All radiology interpretation(s) finalized by discharge Discharge Plan Discharge Condition: Stable Prescriptions: No Action metformin 1,000 mg tablet 1,000 mg PO BID aspirin [Aspir-Nahomy] 325 mg tablet,delayed release (DR/EC) 325 mg PO DAILY omeprazole 20 mg capsule,delayed release(DR/EC) 20 mg PO DAILY fenofibrate micronized 200 mg capsule 200 mg PO DAILY hydrocodone-acetaminophen 10-325 mg tablet 1 tab PO Q4H PRN (Reason: Pain) ibandronate [Boniva] 150 mg tablet 150 mg PO .monthly methylphenidate HCl [Ritalin LA] 20 mg capsule,ER biphasic 50-50 40 mg PO .COMPLEX 30 Days Qty: 240 0RF Rx Instructions: 40 mg orally 2 TABS AM 2 TABS AT NOON; DO NOT FILL UNTILL 08/28/24 methylphenidate HCl [Ritalin LA] 20 mg capsule,ER biphasic 50-50 40 mg PO .COMPLEX 30 Days Qty: 240 0RF Rx Instructions: 40 mg orally 2 TABS AM 2 TABS AT NOON; DO NOT FILL UNTILL 10/26/24 methylphenidate HCl [Ritalin LA] 20 mg capsule,ER biphasic 50-50 40 mg PO .COMPLEX 30 Days Qty: 240 0RF Rx Instructions: 40 mg orally 2 TABS AM 2 TABS AT NOON; DO NOT FILL UNTIL 09/27/24 (DME) AFO right foot 0 .Route .MEDSUPPLY Qty: 1 0RF Rx Instructions: As directed (DME) diabetic shoes and 3 pairs of inserts See Rx Instructions .Route .MEDSUPPLY Qty: 1 0RF Rx Instructions: As directed to the shoe [facility] Referrals: Dereck Hernandez [Primary Care Provider, Family Practice] Print Language: Czech Coding Level of Care Code 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
[2024-08-13 20:33] LABS: Troponin 5 2HR 13.65 ng/L (0-10)
[2024-08-13 20:35] LABS: Troponin 5 2HR Delta -0.35 ABS# (0-10)
[2024-08-13 20:54] VITALS: BP 146/101; PULSE 63; RESP 16; O2SAT 95
[2024-08-13 21:04] VITALS: BP 158/98; PULSE 62; RESP 18; O2SAT 98
== END 2024-08-13 21:05 | disposition home or self-care (01) ==
PROVIDERS: Student in an Organized Health Care Education/Training Program; Emergency Provider Student in an Organized Health Care Education/Training Program; PCP Family Medicine
DX: R42 Dizziness and giddiness (principal); R51.9 Headache, unspecified; R07.9 Chest pain, unspecified; R53.81 Other malaise; E11.9 Type 2 diabetes mellitus without complications; Z87.891 Personal history of nicotine dependence; Z79.84 Long term (current) use of oral hypoglycemic drugs; Z79.82 Long term (current) use of aspirin
CPT/HCPCS: 71045; 80053; 81001; 83735; 84484; 85025; 93005; 99285

== ENCOUNTER → 2024-11-05 10:26 | Outpatient (BNVA) | payer OTHER, MEDICAID, SELFPAY | PROVIDERS: PCP Family Medicine; Visit Provider Specialist | DX: G47.419 Narcolepsy without cataplexy (principal); H91.90 Unspecified hearing loss, unspecified ear; E11.69 Type 2 diabetes mellitus with other specified complication | CPT/HCPCS: 99214 ==

== ENCOUNTER → 2025-02-11 15:41 | Outpatient (BNVA) | payer OTHER, MEDICAID, SELFPAY | PROVIDERS: PCP Family Medicine; Visit Provider Specialist | DX: E11.69 Type 2 diabetes mellitus with other specified complication (principal); G47.419 Narcolepsy without cataplexy; R03.0 Elevated blood-pressure reading, without diagnosis of hypertension; H91.92 Unspecified hearing loss, left ear; Z79.84 Long term (current) use of oral hypoglycemic drugs | CPT/HCPCS: 99213 ==

== ENCOUNTER 2025-03-08 12:48 | Outpatient (CLI) | payer OTHER, MEDICAID, SELFPAY ==
--- NOTE | 2025-03-08 12:54 | MRR_ITS ---
PROCEDURE INFORMATION: Exam: MR Right Upper Extremity Joint Without Contrast; Shoulder Exam date and time: 03/08/2025 1:01 PM Age: 59 years old Clinical indication: Shoulder; Right; Pain x 5 months, no known injury; Additional info: Pain in RT shoulder TECHNIQUE: Imaging protocol: Magnetic resonance imaging of the right upper extremity without contrast. Exam focused on the shoulder. COMPARISON: CR XR chest 1V portable [id number] 08/13/2024 6:23 PM FINDINGS: There are full-thickness tears of the distal supraspinatus, infraspinatus and subscapularis tendons, portions of which are retracted to the mid humeral and glenohumeral joint lines. There is a moderate amount of loculated fluid and synovitis in the subacromial/subdeltoid bursa. The long head of the biceps tendon is intact and normally located within the bicipital groove. The biceps anchor is grossly intact. There is mild glenohumeral osteoarthrosis. Evaluation of the labrum is suboptimal without intra-articular contrast. Circumferential labral changes are likely chronic/degenerative in nature. No definite acute labral tear is identified. Bone marrow signal is normal. There is no evidence of acute fracture or dislocation. Alignment is anatomic. There are mild there is degenerative changes of the acromioclavicular joint. There is a moderate-sized glenohumeral joint effusion. MR/MR shoulder RT wo con* [id number] IMPRESSION: 1. Full-thickness tears of the distal supraspinatus, infraspinatus and subscapularis tendons, portions of which are retracted to the mid humeral and glenohumeral joint lines. 2. Subacromial/subdeltoid bursitis. 3. Mild glenohumeral and acromioclavicular osteoarthrosis. 4. Moderate effusion. 5. Additional findings, as above.
== END 2025-03-08 12:49 | disposition home or self-care (01) ==
LOC: RAD 12:49
PROVIDERS: PCP Family Medicine; Visit Provider Family Medicine
DX: M25.511 Pain in right shoulder (principal); S46.011A Strain of muscle(s) and tendon(s) of the rotator cuff of right shoulder, initial encounter; M75.51 Bursitis of right shoulder; M19.011 Primary osteoarthritis, right shoulder; M25.461 Effusion, right knee
CPT/HCPCS: 73221

== ENCOUNTER → 2025-03-25 14:57 | Outpatient (BNVA) | payer MEDICARE, MEDICAID, SELFPAY | PROVIDERS: PCP Family Medicine; Visit Provider Specialist | DX: M19.011 Primary osteoarthritis, right shoulder (principal); M75.101 Unspecified rotator cuff tear or rupture of right shoulder, not specified as traumatic | CPT/HCPCS: 73030; 99204 ==

== ENCOUNTER 2025-04-09 13:33 | Outpatient (RCR) | payer MEDICARE, MEDICAID, SELFPAY | END 2025-04-10 23:59 | disposition home or self-care (01) | LOC: SPT 13:33 | PROVIDERS: Visit Provider Specialist | DX: M12.811 Other specific arthropathies, not elsewhere classified, right shoulder (principal); M25.511 Pain in right shoulder | CPT/HCPCS: 97110; 97161 ==